=== PATIENT | female | born 1955 | race Caucasian/White ===

== ENCOUNTER 2025-07-10 08:11 | Outpatient (CLI) | payer MEDICARE, OTHER, SELFPAY ==
--- NOTE | ~2025-07-10 | XR_ITS ---
XR cervical spine 4-5V Indication: Right shoulder pain Comparison: None Findings: No fracture identified, no subluxation flexion and extension The disc heights are intact. Soft tissues unremarkable Impression: No acute abnormality. Reviewed, dictated and finalized at location P. Impression: No acute abnormality.
--- NOTE | ~2025-07-10 | XR_ITS ---
EXAMINATION: XR shoulder RT min 2V, 07/10/2025 8:27 CDT HISTORY: Right shoulder pain COMPARISON: No comparisons available. Findings: No acute fracture or malalignment. No significant degenerative changes. Soft tissues unremarkable. Impression: No acute fracture or malalignment. Reviewed, dictated and finalized at location P. Impression: No acute fracture or malalignment.
--- NOTE | ~2025-07-10 | XR_ITS ---
EXAMINATION: XR elbow RT min 3V, 07/10/2025 8:27 CDT HISTORY: Right shoulder pain COMPARISON: No comparisons available. Findings: No acute fracture or malalignment. No significant degenerative changes. Soft tissues unremarkable. Impression: No acute fracture or malalignment. Reviewed, dictated and finalized at location P. Impression: No acute fracture or malalignment.
== END 2025-07-10 08:12 | disposition home or self-care (01) ==
PROVIDERS: PCP Nurse Practitioner Family; Visit Provider Nurse Practitioner Family
DX: M25.511 Pain in right shoulder (principal)
CPT/HCPCS: 72050; 73030; 73080